=== PATIENT | male | born 1980 | race Caucasian/White ===

== ENCOUNTER 2019-08-14 10:33 | Day surgery (SDC) | payer OTHER ==
[2019-08-14] MEDS ORDERED: Xylocaine-Mpf 2% 5 Ml Vial IJ ONE (10:34)
[2019-08-14] MEDS ORDERED: Depo-Medrol 40 MG/ML IM ONE (10:34)
[2019-08-14] MEDS ORDERED: DIPRIVAN 200 MG/20 ML IV ONE (12:04)
[2019-08-14] MEDS ORDERED: Ketamine HCl 50 MG/ML ONE (12:04)
--- NOTE | 2019-08-14 14:19 | XRAY ---
Indication: Right L2-L5 MBB. Intraoperative fluoroscopy was provided for 14 seconds. Single digital spot image submitted for interpretation demonstrates posterior needle tips projecting over the expected course of the right L2-L5 nerve roots. Correlate with intraoperative findings/report.
--- NOTE | 2019-08-14 14:36 | XRAY ---
14 seconds of fluoroscopy was used in surgery for a right L2-L3, L3-L4, and L4-L5 MBB.
[2019-08-14] MEDS ORDERED: Lactated Ringers 1,000 ML IV ONE (14:53)
== END 2019-08-14 12:37 | disposition home or self-care (01) ==
LOC: SDC-PAIN 10:33
PROVIDERS: ATTEND Psychiatry & Neurology Pain Medicine
DX: M47.816 Spondylosis without myelopathy or radiculopathy, lumbar region (principal); K21.9 Gastro-esophageal reflux disease without esophagitis; Z79.899 Other long term (current) drug therapy
CPT/HCPCS: 64493; 64494; 64495; 72020; 77002; J1030; J2704